=== PATIENT | male | born 1990 | race Caucasian/White ===

== ENCOUNTER 2020-09-16 14:27 | Emergency (ER) | payer BC, SELFPAY ==
[2020-09-16 14:38] VITALS: BP 120/86; PULSE 90; RESP 18; TEMP 36.7; O2SAT 97; BMI 21.5
--- NOTE | 2020-09-16 14:51 | HMH.EDUTC ---
[facility] [place] Clinical Impression: Exposure to COVID-19 virus, Encounter for laboratory testing for COVID-19 virus Disposition: Home, Self-Care Condition on Discharge: Good Instructions: Preventing the Spread of Coronavirus Discharge Instructions Additional Instructions: *Monitor Temp, Over the counter Motrin or Tylenol as directed/as needed Tylenol every 4 hours and Motrin every 6 hours (as long as your family doctor has told you that you can take it) for fever or pain. and straight to ER if unable to lower temp less than 101.0 after medication given *Warm salt water gargles may help to soothe the throat *Throat Lozenges *Warm fluids like tea with honey may help to soothe the throat *Sleep elevated *Humidifier/Vaporizer Follow up IMMEDIATELY for new or worsening symptoms or no Noticeable improvement over the next 48-72 hours. 911 for difficulty breathing or swallowing You was tested for today for COVID19 your test result should be back in the next 24-48 hours, you may call to the [facility] later today or tomorrow to see if your test results are back and the result [phone] [facility] hours are 9am-9pm You was given a handout with instructions for Self Quarantine and Self isolation for while you wait on test results and what to do if they are positive If you are positive the Health Dept will be contacting you also Referrals: PCP,No [Primary Care Provider] - As needed Forms: Work/School Release Time of Disposition: 14:54 Medical Decision Making - Jim Inquiry Pt receiving controlled substance: No Jim was queried for this patient: No Vital Signs: 09/16/20 14:38 Temperature 98.0 F Temperature Source Oral Pulse Rate [Radial] 90 Respiratory Rate 18 Blood Pressure [Right Arm] 120/86 Blood Pressure Mean [Right Arm] 97 Blood Pressure Source [Right Arm] Automatic Cuff Blood Pressure Position [Right Arm] Sitting 02 Sat by Pulse Oximetry 97 Oxygen Delivery Method Room Air Orders (Tests/Meds): ORDERS Category Date Time Status Covid-19 Nasal PCR Sendout [facility] Stat Lab 09/16/20 14:30 Received [facility] [place] HPI - General Stated complaint: covid test Time Seen by Provider: 09/16/20 14:51 Mode of Arrival: Ambulatory Source of Information: Patient Limitations: No Limitations Description of Symptoms (Recalled from Triage Doc. by RN): covid test HEENT Symptoms (Recalled from RN notes): No Resp Symptoms (Recalled from RN notes): No Skin Symptoms (Recalled from RN notes): No MS Symptoms (Recalled from RN notes): No Functional Status (Recalled from RN notes): wnl - History of Present Illness Provider Complaint: Patient states that he has been around his step mother that was recently dx with COVID and he works in the public and his job wanted him to get tested for COVID - Related Data Previous Rx's Medication Instructions Recorded Sulfamethoxazole/Trimethoprim 1 each PO BID 10 Days #20 tab 10/26/19 [Bactrim DS tablet] cephALEXin [Keflex 500mg Cap] 500 mg PO Q6H 7 Days #28 cap 10/26/19 Allergies Allergy/AdvReac Type Severity Reaction Status Date / Time No Known Allergies Allergy Verified 10/26/19 20:43 - Worker's Comp Is this a Worker's Comp case?: No [facility] History - Hepatitis A Screen Drug use history?: No High risk sexual behaviors?: No History of sexually transmitted infection?: No Currently employed?: No Childcare worker?: No Do you have indoor plumbing?: Yes Do you have electricity?: Yes Attestation statement:: This patient has been screened for Hepatitis A risk factors. I have reviewed the patient's past medical history: Yes - Social History Alcohol Intake: never Occupational Status: other Housing: house ROS Obtained: Yes All systems reviewed & no additional complaints, Yes Systems reviewed as appropriate & no additional complaints - Constitutional Constitutional: Reports system reviewed and no additional complaints, except as docu, Denies body ache, Denies chills, Denies fever
[2020-09-16 15:00] VITALS: BP 120/86; PULSE 90; RESP 18; TEMP 36.7; O2SAT 97
[2020-09-17 07:17] LABS: Adenovirus,PCR Not Detected (NotDetected); Bordetella Pertussis Not Detected (NotDetected); Chlamydophila Pneumoniae, PCR Not Detected (NotDetected); Coronavirus 229E Not Detected (NotDetected); Coronavirus NL63 Not Detected (NotDetected); Coronavirus OC43 Not Detected (NotDetected); Coronovirus HKU1,PCR Not Detected (NotDetected); Human Metapneumovirus Not Detected (NotDetected); Influenza A, PCR Not Detected (NotDetected); Influenza AH1, 2009 Not Detected (NotDetected); Influenza AH1, PCR Not Detected (NotDetected); Influenza AH3,PCR Not Detected (NotDetected); Influenza B, PCR Not Detected (NotDetected); Mycoplasma Pneumoniae, PCR Not Detected (NotDetected); Parainfluenza 1, PCR Not Detected (NotDetected); Parainfluenza 2, PCR Not Detected (NotDetected); Parainfluenza 3, PCR Not Detected (NotDetected); Parainfluenza 4, PCR Not Detected (NotDetected); Respiratory Syncytial Virus Not Detected (NotDetected); Rhinovirus/Enterovirus Not Detected (NotDetected)
[2020-09-17 09:09] LABS: Coronavirus 19, PCR Detected (NotDetected)
== END 2020-09-16 15:02 | disposition home or self-care (01) ==
PROVIDERS: Emergency Provider Nurse Practitioner
DX: U07.1 COVID-19 (principal)
CPT/HCPCS: 87581; 87633; 87798; 99201; U0003; U0004

== ENCOUNTER 2021-01-14 13:07 | Emergency (ER) | payer BC, SELFPAY ==
[2021-01-14 13:17] VITALS: BP 124/68; PULSE 78; RESP 14; TEMP 36.7; O2SAT 100; BMI 21.5
[2021-01-14 13:23] VITALS: BP 119/95; PULSE 72; RESP 14; TEMP 36.6
--- NOTE | 2021-01-14 13:28 | HMH.EDUTC ---
[facility] [place] Disposition Clinical Impression: Exposure to COVID-19 virus Disposition: Home, Self-Care Condition on Discharge: Good Instructions: Preventing the Spread of Coronavirus Discharge Instructions Additional Instructions: Drink plenty of fluids. Take tylenol for pain or fever. Return if you begin to have difficulty breathing. Follow up with your regular doctor. GO TO THE ER FOR ANY WORSENING SYMPTOMS Referrals: Roly Neal MD [Primary Care Provider] - Time of Disposition: 13:29 Medical Decision Making - Medical Records Medical records reviewed: No: I reviewed the patient's medical records. - Jim Inquiry Pt receiving controlled substance: No Vital Signs: 01/14/21 13:17 01/14/21 13:23 Temperature 98.1 F 98 F Temperature Source Tympanic Pulse Rate 72 Pulse Rate [Right] 78 Respiratory Rate 14 14 Blood Pressure 119/95 H Blood Pressure [Right Arm] 124/68 Blood Pressure Mean [Right Arm] 86 Blood Pressure Source [Right Arm] Automatic Cuff Blood Pressure Position [Right Arm] Sitting 02 Sat by Pulse Oximetry 100 Oxygen Delivery Method Room Air Orders (Tests/Meds): ORDERS Category Date Time Status Covid-19 Nasal PCR ([facility]) Routine Lab 01/14/21 12:15 Received [facility] [place] HPI - General Stated complaint: covid exposure Time Seen by Provider: 01/14/21 13:28 Mode of Arrival: Ambulatory Source of Information: Patient Limitations: No Limitations Description of Symptoms (Recalled from Triage Doc. by RN): direct exposure to covid positive family HEENT Symptoms (Recalled from RN notes): No Resp Symptoms (Recalled from RN notes): No Skin Symptoms (Recalled from RN notes): No MS Symptoms (Recalled from RN notes): No Functional Status (Recalled from RN notes): na - History of Present Illness Provider Complaint: His mother tested positive for covid-19 yesterday. He denies any symptoms so far. - Related Data Previous Rx's Medication Instructions Recorded Sulfamethoxazole/Trimethoprim 1 each PO BID 10 Days #20 tab 10/26/19 [Bactrim DS tablet] cephALEXin [Keflex 500mg Cap] 500 mg PO Q6H 7 Days #28 cap 10/26/19 Allergies Allergy/AdvReac Type Severity Reaction Status Date / Time No Known Allergies Allergy Verified 01/14/21 13:23 - Worker's Comp Is this a Worker's Comp case?: No [facility] History - Hepatitis A Screen Drug use history?: No High risk sexual behaviors?: No History of sexually transmitted infection?: No Currently employed?: No Childcare worker?: No Do you have indoor plumbing?: Yes Do you have electricity?: Yes Attestation statement:: This patient has been screened for Hepatitis A risk factors. I have reviewed the patient's past medical history: Yes - Social History Smoking Status: Unknown if ever smoked Alcohol Intake: never Occupational Status: employed Housing: house ROS Obtained: Yes All systems reviewed & no additional complaints - Constitutional Constitutional: Reports system reviewed and no additional complaints, except as docu - Eyes Eyes: Reports system reviewed and no additional complaints, except as docu - ENT Ears, Nose, Mouth, and Throat: Reports system reviewed and no additional complaints, except as docu - Cardiovascular Cardiovascular: Reports system reviewed and no additional complaints, except as docu - Respiratory Respiratory: Reports system reviewed and no additional complaints, except as docu - Gastrointestinal Gastrointestingal: Reports: system reviewed and no additional complaints, except as docu Physical Exam - General General appearance: alert, in no apparent distress - Head Head exam: atraumatic, normocephalic, normal inspection - Eye Eye exam: Present: normal appearance, PERRL, EOMI - ENT ENT exam: Present: normal exam, normal oropharynx, mucous membranes moist, TM's normal bilaterally, normal external ear exam - Neck Neck exam: Present: normal inspection, full ROM, trachea midline. Abse
== END 2021-01-14 13:30 | disposition home or self-care (01) ==
PROVIDERS: Emergency Provider Nurse Practitioner Family; PCP Family Medicine
DX: Z20.822 Contact with and (suspected) exposure to COVID-19 (principal)
CPT/HCPCS: 99202; G0463; U0003

== ENCOUNTER 2024-05-14 18:47 | Outpatient (CLI) | payer OTHER, SELFPAY ==
[2024-05-14 19:30] LABS: Basophils % 0.5 % (0.1-2.0); Chloride 107 mmol/L (98-107); Eosinophils # 0.1 K/mm3 (0.0-0.4); Eosinophils % 1.7 % (0.1-12.0); Hematocrit 42.6 % (42.0-52.0); Hemoglobin 13.6 g/dL (14.1-18.0); Lymphocytes # 1.9 K/mm3 (0.7-4.5); Lymphocytes % 31.8 % (10-50); Mean Corpuscular HGB Conc 31.9 g/dL (31.8-35.4); Mean Corpuscular Hemoglobin 25.8 pg (27.0-31.2); Mean Corpuscular Volume 80.8 fl (80-94); Mean Platelet Volume 9.6 fl (7.4-10.4); Monocytes # 0.4 K/mm3 (0.1-1.0); Monocytes % 6.6 % (1.7-9.3); Neutrophils # 3.5 K/mm3 (1.8-7.8); Neutrophils % 59.4 % (37.0-80.0); Platelet Count 264 K/mm3 (142-424); Potassium 4.1 mmoL/L (3.5-5.1); Red Blood Count 5.26 M/mm3 (4.60-6.20); Red Cell Distribution Width 14.3 % (11.5-17.5); Sodium 141 mmol/L (136-145); White Blood Count 5.8 K/mm3 (4.8-10.8)
[2024-05-14 19:33] LABS: Alanine Aminotransferase 19 U/L (12-78); Albumin Level 4.1 g/dl (3.5-5.0); Albumin/Globulin Ratio 1.5 (1.1-1.8); Alkaline Phosphatase 61 U/L (38-126); Anion Gap 11.1 mEq/L (5-15); Aspartate Amino Transferase 30 U/L (17-59); Bilirubin,Total 0.2 mg/dl (0.2-1.3); Blood Urea Nitrogen 17 mg/dl (9-20); Calcium 9.3 mg/dl (8.4-10.2); Carbon Dioxide 27 mmol/L (22.0-30.0); Cholesterol 122 mg/dl (140-200); Estimated Glomerular Filt Rate 98 ml/min (>60); GFR (African American) 119 ML/MIN (>60); Globulin 2.7 g/dL (1.3-3.2); Glucose 106 mg/dl (74-100); Total Protein,Serum 6.8 g/dl (6.3-8.2); Triglycerides 44 mg/dl (30-150); VLDL Cholesterol 9 mg/dL (0-40)
[2024-05-14 19:34] LABS: Chol/HDL Ratio 2.4 (1-3.5); HDL Cholesterol 50 mg/dl (40-60)
[2024-05-14 19:45] LABS: Direct LDL Cholesterol 51.36 mg/dL (100-129)
[2024-05-14 20:12] LABS: Hemoglobin A1C 5.3 % (4.0-6.0)
== END 2024-05-14 23:59 | disposition home or self-care (01) ==
LOC: LAB.DROPOF 18:47
PROVIDERS: PCP Nurse Practitioner; Visit Provider Nurse Practitioner
DX: Z13.220 Encounter for screening for lipoid disorders (principal); Z13.1 Encounter for screening for diabetes mellitus; Z13.29 Encounter for screening for other suspected endocrine disorder; Z13.0 Encounter for screening for diseases of the blood and blood-forming organs and certain disorders involving the immune mechanism
CPT/HCPCS: 80050; 80053; 80061; 83036; 84443; 85025

== ENCOUNTER 2025-09-30 19:16 | Emergency (ER) | payer OTHER, SELFPAY ==
[2025-09-30] VITALS (7 sets, daily range): BP systolic 138–157; BP diastolic 85–100; PULSE 101–119; RESP 16–17; TEMP 37.2; O2SAT 97–98; BMI 28.8
--- NOTE | 2025-09-30 19:47 | XR_ITS ---
PROCEDURE INFORMATION: Exam: XR Chest Exam date and time: 09/30/2025 8:16 PM Age: 35 years old Clinical indication: Cough TECHNIQUE: Imaging protocol: Radiologic exam of the chest. Views: 1 view. COMPARISON: No relevant prior studies available. FINDINGS: Lungs: Unremarkable. No consolidation. Pleural spaces: Unremarkable. No pleural effusion. No pneumothorax. Heart/Mediastinum: Unremarkable. No cardiomegaly. Diaphragm: Mild eventration and elevation of the right hemidiaphragm. Bones/joints: Unremarkable. IMPRESSION: No acute findings.
--- NOTE | 2025-09-30 19:53 | ED_ITS ---
Discharge Plan Disposition Patient Disposition: Home, Self-Care Prescriptions Prescriptions: No Action fluticasone propionate [Flonase Allergy Relief] 50 mcg/actuation spray,suspension 1 spray intranasal DAILY Qty: 16 2RF Rx Instructions: administer into each nostril Referrals Follow up/Referrals: Tracee Larios APRN [Primary Care Provider, Family Practice] - See instructions Activity Restrictions/Add. Instructions Additional Instructions/Restrictions: Increase fluids and rest. Take meds as directed [id number]. If any worsening symptoms occur please return to the ED or follow-up with your PCP. Clinical Impressions Clinical Impression: Viral illness Instructions Patient Instructions: DI for Viral Syndrome Print Language Print Language: Estonian Discharge ED Provider: Tobi Martinez General Adult HPI <Akua Lewis (ED), MANDARIN TEACHER - Last Filed: 09/30/25 21:32> General Chief complaint: Dizziness Stated complaint: dizzy,lightheaded, joce uribe sent him Time Seen by Provider: 09/30/25 19:17 History of Present Illness HPI narrative: 35-year-old male presents to the ED today for dizziness, lightheaded feeling, cough, shortness of air. Patient says he started feeling bad after work. He took cold and flu meds and felt better. His has been sick with vomiting. He has not had any vomiting no headache no chest pain he has had a cough with green sputum. He has had some sinus pain and pressure as well. He was sent over by Joce Uribe from [facility]. Related Data Previous Rx's ?Medication ?Instructions ?Recorded fluticasone propionate 50 1 spray intranasal DAILY #16 grams 10/11/24 mcg/actuation nasal spray,suspension (Flonase Allergy Relief) Allergies Allergy/AdvReac Type Severity Reaction Status Date / Time No Known Allergies Allergy Verified 10/11/24 11:35 PFSH <Akua Lewis (ED), MANDARIN TEACHER - Last Filed: 09/30/25 21:32> [facility] Disclaimer: The information contained in this section may have been updated after the patient was seen, as this information can be updated by other users. Medical History (Updated 09/30/25 @ 21:32 by Akua Lewis (ED), MANDARIN TEACHER) Encounter for annual health examination Social History Smoking Status: Never smoker alcohol intake: never current occupational status: employed Travel in the last 8 weeks?: None housing: house Have you lived/traveled outside US in past 30 days?: No Contact w/someone who lives/traveled outside US past 30 days?: No Exposure to someone with infectious disease in past 14 days?: No Do you have a fever (greater than 100.4 F or 38 C)?: No Have you tested positive for COVID-19?: No Exposed to someone with COVID-19 in past 14 days?: No Do you have a sore throat?: No Do you have a cough?: No Do you have any weakness?: No Do you have any diarrhea?: No Are you experiencing any unusual bleeding?: No Do you have any muscle aches/pain?: No Do you have any abdominal pain?: No Are you experiencing loss of taste or smell?: No <Akua Lewis (ED), MANDARIN TEACHER - Last Filed: 09/30/25 21:32> ROS Obtained: Yes Systems reviewed as appropriate & no additional complaints except as documented Constitutional Constitutional: Reports as per HPI Physical Exam <Akua Lewis (ED), MANDARIN TEACHER - Last Filed: 09/30/25 21:32> General General appearance: alert and in no apparent distress Head Head exam: normocephalic Eye Eye exam: Present PERRL and EOMI ENT ENT exam: Present normal oropharynx and mucous membranes moist Neck Neck exam: Present full ROM and trachea midline Respiratory Respiratory exam: Present normal lung sounds bilaterally Cardiovascular Cardiovascular exam: Present regular rate, normal rhythm, normal heart sounds, +S1 and +S2 Abdominal Exam Abdominal exam: Present soft and normal bowel sounds Extremities Exam Extremities exam: Present full ROM and normal capillary refill Neurological Exam Neurological exam: Present alert and oriented X3 Skin Skin exam: Present warm and dry Medical Decision Making <Akua Lewis (ED), MANDARIN TEACHER - Last Filed: 09/30/25 21:32> Medical Records Screening: Per USPSTF and CDC recommendations, given the prevalence of disease in our region, it is our hospital?s policy to screen for HIV and viral Hepatitis for all patients aged 18 and over and those with ongoing risk factors. Jim Inquiry Pt receiving controlled substance: No Jim was queried for this patient: No Vital Signs: 09/30/25 19:17 Temperature 98.9 F Temperature Source Oral Pulse Rate [Left Radial] 101 H Respiratory Rate 17 Blood Pressure [Right Arm] 155/92 H Blood Pressure Mean [Right Arm] 113 Blood Pressure Source [Right Arm] Automatic Cuff Blood Pressure Position [Right Arm] Sitting 02 Sat by Pulse Oximetry 97 Oxygen Delivery Method Room Air Lab Data Lab Results 09/30/25 20:07: SARS-CoV-2 (PCR) Not detected, Influenza A Untype (PCR) Not detected, Influenza Type B (PCR) Not detected 09/30/25 20:27: WBC 9.0, RBC 5.69, Hgb 14.2, Hct 44.3, MCV 77.9 L, MCH 25.0 L, MCHC 32.1, RDW 14.3, Plt Count 289, MPV 10.4, Neut % (Auto) 76.9, Lymph % (Auto) 11.6, [place] % (Auto) 10.4 H, Eos % (Auto) 0.4, Baso % (Auto) 0.3, Neut # (Auto) 6.9, Lymph # (Auto) 1.1, [place] # (Auto) 0.9, Eos # (Auto) 0.0, Baso # (Auto) 0.0, D-Dimer 0.39, Sodium 143, Potassium 4.0, Chloride 99, Carbon Dioxide 29, Anion Gap 19.0 H, BUN 15, Creatinine 1.00, Estimated Creat Clear 135, Estimated GFR 86, Est GFR ( Amer) 104, Glucose 126 H, Calcium 9.7, Magnesium 2.4 H, Total Bilirubin 0.3, AST 41, ALT 42, Alkaline Phosphatase 58, Troponin I < 0.01, Total Protein 8.3 H, Albumin 4.9, Globulin 3.4 H, Albumin/Globulin Ratio 1.4, Lipase 52 09/30/25 20:27 09/30/25 20:27 Orders (Tests/Meds): ED MEDICATIONS Discontinued Medications Generic Name Dose Route Start Last Admin Trade Name Freq PRN Reason Stop Dose Admin Albuterol/Ipratropium 9 ml 09/30/25 19:50 09/30/25 20:49 Ipratropium/Albuterol 3 Ml Neb IH 09/30/25 19:51 9 ml ONCE ONE Administration Dexamethasone Sodium Phosphate 8 mg 09/30/25 19:50 09/30/25 20:50 Dexamethasone 4mg/Ml 1ml Vial IV 09/30/25 19:51 8 mg ONCE ONE Administration ORDERS Category Date Time Status Chest XR -- portable [XR chest portable] Stat Exams 09/30/25 19:47 Completed CBC w/Auto Diff [Complete Blood Count Auto Diff] Stat Lab 09/30/25 20:27 Completed Comprehensive Metabolic Panel Stat Lab 09/30/25 20:27 Completed D-Dimer Stat Lab 09/30/25 20:27 Completed HIV Combo Stat Lab 09/30/25 20:27 Received Hepatitis C Ab Qual. W/ RFX Stat Lab 09/30/25 20:27 Received Lipase Stat Lab 09/30/25 20:27 Completed Magnesium Stat Lab 09/30/25 20:27 Completed Rapid PCR Covid and Flu A/B Stat Lab 09/30/25 20:07 Completed Trop I [Troponin I] Stat Lab 09/30/25 20:27 Completed Troponin I Q3H Lab 09/30/25 23:00 Ordered Troponin I Q3H Lab 10/01/25 02:00 Ordered Medical Decision Narrative: patient is a 35-year-old male presenting to the emergency department for evaluation of cough, lightheadedness and shortness of air when he got off work today. Patient is hemodynamically stable and nontoxic-appearing upon arrival, afebrile. Differential diagnosis includes COVID, flu, ACS, PE, pneumonia among others. Workup will be conducted with hematologic labs, specific imaging. Initial inventions include crystalloid bolus, analgesics. Initial workup reviewed by mo white count of 9, H&H were normal, dimer was 0.39. Patient's chest x-ray was no acute findings, troponin was less than 0.01. COVID and flu were negative. Patient stable and ready for discharge. <Tobi Martinez MD - Last Filed: 09/30/25 21:37> Vital Signs: 09/30/25 19:17 Temperature 98.9 F Temperature Source Oral Pulse Rate [Left Radial] 101 H Respiratory Rate 17 Blood Pressure [Right Arm] 155/92 H Blood Pressure Mean [Right Arm] 113 Blood Pressure Source [Right Arm] Automatic Cuff Blood Pressure Position [Right Arm] Sitting 02 Sat by Pulse Oximetry 97 Oxygen Delivery Method Room Air Lab Data Lab Results 09/30/25 20:07: SARS-CoV-2 (PCR) Not detected, Influenza A Untype (PCR) Not detected, Influenza Type B (PCR) Not detected 09/30/25 20:27: WBC 9.0, RBC 5.69, Hgb 14.2, Hct 44.3, MCV 77.9 L, MCH 25.0 L, MCHC 32.1, RDW 14.3, Plt Count 289, MPV 10.4, Neut % (Auto) 76.9, Lymph % (Auto) 11.6, [place] % (Auto) 10.4 H, Eos % (Auto) 0.4, Baso % (Auto) 0.3, Neut # (Auto) 6.9, Lymph # (Auto) 1.1, [place] # (Auto) 0.9, Eos # (Auto) 0.0, Baso # (Auto) 0.0, D-Dimer 0.39, Sodium 143, Potassium 4.0, Chloride 99, Carbon Dioxide 29, Anion Gap 19.0 H, BUN 15, Creatinine 1.00, Estimated Creat Clear 135, Estimated GFR 86, Est GFR ( Amer) 104, Glucose 126 H, Calcium 9.7, Magnesium 2.4 H, Total Bilirubin 0.3, AST 41, ALT 42, Alkaline Phosphatase 58, Troponin I < 0.01, Total Protein 8.3 H, Albumin 4.9, Globulin 3.4 H, Albumin/Globulin Ratio 1.4, Lipase 52 Orders (Tests/Meds): ED MEDICATIONS Discontinued Medications Generic Name Dose Route Start Last Admin Trade Name Freq PRN Reason Stop Dose Admin Albuterol/Ipratropium 9 ml 09/30/25 19:50 09/30/25 20:49 Ipratropium/Albuterol 3 Ml Neb 09/30/25 19:51 9 ml ONCE ONE Administration Dexamethasone Sodium Phosphate 8 mg 09/30/25 19:50 09/30/25 20:50 Dexamethasone 4mg/Ml 1ml Vial IV 09/30/25 19:51 8 mg ONCE ONE Administration ORDERS Category Date Time Status Chest XR -- portable [XR chest portable] Stat Exams 09/30/25 19:47 Completed CBC w/Auto Diff [Complete Blood Count Auto Diff] Stat Lab 09/30/25 20:27 Completed Comprehensive Metabolic Panel Stat Lab 09/30/25 20:27 Completed D-Dimer Stat Lab 09/30/25 20:27 Completed HIV Combo Stat Lab 09/30/25 20:27 Received Hepatitis C Ab Qual. W/ RFX Stat Lab 09/30/25 20:27 Received Lipase Stat Lab 09/30/25 20:27 Completed Magnesium Stat Lab 09/30/25 20:27 Completed Rapid PCR Covid and Flu A/B Stat Lab 09/30/25 20:07 Completed Trop I [Troponin I] Stat Lab 09/30/25 20:27 Completed Troponin I Q3H Lab 09/30/25 23:00 Ordered Troponin I Q3H Lab 10/01/25 02:00 Ordered ECG Data Tracing #1: Independently interpreted by me rate is 98, rhythm is regular, axis is normal, no ST elevation in anatomical contiguous leads, QTc 381. Medical Decision Narrative: patient is a 35-year-old male presenting to the emergency department for evaluation of cough, lightheadedness and shortness of air when he got off work today. Patient is hemodynamically stable and nontoxic-appearing upon arrival, afebrile. Differential diagnosis includes COVID, flu, ACS, PE, pneumonia among others. Workup will be conducted with hematologic labs, specific imaging. Initial inventions include crystalloid bolus, analgesics. Initial workup reviewed by me white count of 9, H&H were normal, dimer was 0.39. Patient's chest x-ray was no acute findings, troponin was less than 0.01. COVID and flu were negative. Patient stable and ready for discharge. Tobi Martinez MD: I was consulted by the TALA, and we discussed the complexity of the problems being addressed. I approved the treatment and management plan for this patient's care in the emergency department, thus performing a substantive portion of the medical decision making. Critical Care <Akua Lewis (ED), MANDARIN TEACHER - Last Filed: 09/30/25 21:32> Critical Care Time Critical Care Time: No
--- NOTE | 2025-09-30 20:14 | ECG_ITS ---
APPROVED REPORT Exam: Resting ECG HR:98 bpm ECG Measurements Heart Rate 98 AXES MD 133 P 54 QRSd 84 QRS 3 QT 326 T 46 QTc 381 Conclusion SINUS RHYTHM NORMAL ECG UNCONFIRMED REPORT Electronically signed by : ALANNA HILLS, 10/02/2025 05:00:33
[2025-09-30 20:37] LABS: Coronavirus 19, PCR Not Detected (NotDetected); Influenza A, PCR Not Detected (NotDetected); Influenza B, PCR Not Detected (NotDetected)
[2025-09-30 20:37] LABS: Hematocrit 44.3 % (42.0-52.0); Hemoglobin 14.2 g/dL (14.1-18.0); Immature Granulocytes % 0.4 %; Mean Corpuscular HGB Conc 32.1 g/dL (31.8-35.4); Mean Corpuscular Hemoglobin 25.0 pg (27.0-31.2); Mean Corpuscular Volume 77.9 fl (80-94); Nucleated Red Blood Cells % 0 %; Platelet Count 289 K/mm3 (142-424); Red Blood Count 5.69 M/mm3 (4.60-6.20); Red Cell Distribution Width-SD 39.6 fL; White Blood Count 9.0 K/mm3 (4.8-10.8)
[2025-09-30] MEDS: IPRATROPIUM/ALBUTEROL 3 ML NEB 9 ML IH (20:49)
[2025-09-30] MEDS: DEXAMETHASONE 4MG/ML 1ML VIAL 8 MG IV (20:50)
[2025-09-30 20:51] LABS: Albumin Level 4.9 g/dl (3.5-5.0); Chloride 99 mmol/L (98-107); Potassium 4.0 mmoL/L (3.5-5.1); Sodium 143 mmol/L (136-145)
[2025-09-30 20:54] LABS: Alanine Aminotransferase 42 U/L (12-78); Albumin/Globulin Ratio 1.4 (1.1-1.8); Alkaline Phosphatase 58 U/L (38-126); Anion Gap 19.0 mEq/L (5-15); Aspartate Amino Transferase 41 U/L (17-59); Bilirubin,Total 0.3 mg/dl (0.2-1.3); Blood Urea Nitrogen 15 mg/dl (9-20); Carbon Dioxide 29 mmol/L (22.0-30.0); Creatinine Clearance Estimated 135 mL/min (50-200); Creatinine,Serum 1.00 mg/dl (0.66-1.25); Estimated Glomerular Filt Rate 86 ml/min (>60); GFR (African American) 104 ML/MIN (>60); Globulin 3.4 g/dL (1.3-3.2); Total Protein,Serum 8.3 g/dl (6.3-8.2)
[2025-09-30 20:55] LABS: Calcium 9.7 mg/dl (8.4-10.2); Glucose 126 mg/dl (74-100); Lipase 52 U/L (23-300); Magnesium 2.4 mg/dl (1.6-2.3)
[2025-09-30 21:03] LABS: D-Dimer 0.39 ug/mL (0.0-0.5)
[2025-09-30 21:07] LABS: Troponin I < 0.01 ng/ml (0.00-0.034)
[2025-09-30 21:43] LABS: Hepatitis C Ab Qual. W/ RFX NEGATIVE (Negative)
== END 2025-09-30 21:44 | disposition home or self-care (01) ==
PROVIDERS: Nurse Practitioner; Emergency Provider Emergency Medicine; PCP Nurse Practitioner
DX: R06.02 Shortness of breath (principal); R42 Dizziness and giddiness; R09.81 Nasal congestion; B34.9 Viral infection, unspecified
CPT/HCPCS: 71045; 80053; 83690; 83735; 84484; 85025; 85378; 86803; 87389; 87636; 93005; 96374; 99284; 99285; J1100